=== PATIENT | female | born 1960 | race Two or more races ===

== ENCOUNTER 2020-05-24 08:45 | Day surgery (SDC) | payer MEDICAID ==
[~2020-05-24] VITALS: Ht 149.9 cm; Wt 101.8 kg
[~2020-05-24 08:45] MED LIST: ALBU8.5H4 IH; ASPI-1009 PO; BISM-142 PO; INSU100V36 SQ; INSU100V9 SQ; LORA0.5T PO; LORATADINE PO; METH10OR11 PO; OMEP-84 PO; OXYC-150 PO; PATANOL EACHEYE; ROSU20TA2 PO
[2020-05-24] MEDS ORDERED: MIDAZolam 1 MG/ML 5ML VIAL ONE (09:06)
[2020-05-24] MEDS ORDERED: fentaNYL/PF 50MCG/1 ML 2ML syringe ONE (09:06)
[2020-05-24 09:10] VITALS: BP 143/69
[2020-05-24] MEDS ORDERED: OXYC20TA71 PO (09:36)
[2020-05-24 10:34] VITALS: BP 102/45
[2020-05-24 10:44] VITALS: BP 115/81
[2020-05-24 10:54] VITALS: BP 112/52
== END 2020-05-24 11:08 | disposition home or self-care (01) ==
LOC: GI LAB 08:45
PROVIDERS: ATTEND Internal Medicine Gastroenterology
DX: Z12.11 Encounter for screening for malignant neoplasm of colon (principal); K63.5 Polyp of colon; K64.8 Other hemorrhoids; E11.9 Type 2 diabetes mellitus without complications; F17.210 Nicotine dependence, cigarettes, uncomplicated; Z85.038 Personal history of other malignant neoplasm of large intestine; Z79.4 Long term (current) use of insulin; Z79.82 Long term (current) use of aspirin; Z79.899 Other long term (current) drug therapy; Z80.0 Family history of malignant neoplasm of digestive organs
CPT/HCPCS: 45380; 45385; 99152; 99153; C1773; J2250; J3010; J7040; A4620

== ENCOUNTER 2022-03-15 04:32 | Emergency (ER) | payer MEDICAID ==
[~2022-03-15] VITALS: Ht 149.9 cm; Wt 110.0 kg
[~2022-03-15 04:32] MED LIST changes: -BISM-142 PO; -LORA0.5T PO; -LORATADINE PO; -METH10OR11 PO; -OXYC-150 PO; +OXYC20TA78 PO; -PATANOL EACHEYE; -ROSU20TA2 PO
[2022-03-15] MEDS ORDERED: normal saline 1000ML IV soln IVB ONE (04:45)
[2022-03-15] MEDS ORDERED: ketorolac tromethamine 15mg/ml inj. IV ONE (04:45)
[2022-03-15] MEDS ORDERED: HYDROmorphone 1 mg/ml syringe IV ONE (04:45)
[2022-03-15 05:20] LABS: BASOPHILS # (AUTO) 0.1 X10'3 (0-0.2); BASOPHILS % (AUTO) 0.8 % (0-1); EOSINOPHILS # (AUTO) 0.2 X10'3 (0-0.9); EOSINOPHILS % (AUTO) 3.3 % (0-6); HEMATOCRIT 39.2 % (35.0-45.0); HEMOGLOBIN 12.8 g/dl (12.0-16.0); LYMPHOCYTES # (AUTO) 2.2 X10'3 (1.1-4.8); LYMPHOCYTES % (AUTO) 29.2 % (21-51); MEAN CORPUSCULAR HEMOGLOBIN 28.6 PG (27.0-31.0); MEAN CORPUSCULAR HGB CONC 32.6 g/dL (33.0-36.5); MEAN CORPUSCULAR VOLUME 87.7 FL (78-98); MEAN PLATELET VOLUME 7.2 FL (7.4-10.4); MONOCYTES # (AUTO) 0.6 X10'3 (0-0.9); MONOCYTES % (AUTO) 7.9 % (2-12); NEUTROPHILS # (AUTO) 4.3 X10'3 (1.8-7.7); NEUTROPHILS % (AUTO) 58.8 % (42-75); PLATELET COUNT 242 X10'3 (140-440); RED BLOOD COUNT 4.47 X10'6 (4.20-5.60); RED CELL DISTRIBUTION WIDTH 14.2 % (11.5-14.5); WHITE BLOOD COUNT 7.4 X10'3 (4.5-11.0)
[2022-03-15 05:32] LABS: ALANINE AMINOTRANSFERASE 22 U/L (12-78); ALBUMIN 2.8 G/DL (3.4-5.0); ALBUMIN/GLOBULIN RATIO 0.7 (1.1-1.5); ALKALINE PHOSPHATASE 107 IU/L (46-116); ANION GAP 5 (8-16); ASPARTATE AMINO TRANSFERASE 23 U/L (10-37); BILIRUBIN,TOTAL 0.3 MG/DL (0.1-1.0); BLOOD UREA NITROGEN 13 MG/DL (7-18); BUN/CREATININE RATIO 17.3 (6.6-38.0); CALCIUM 8.3 MG/DL (8.5-10.1); CHLORIDE 107 MMOL/L (99-107); CREATININE 0.75 MG/DL (0.40-0.90); GLUCOSE 122 MG/DL (70-104); LIPASE < 50 U/L (73-393); POTASSIUM 4.1 MMOL/L (3.5-5.1); SODIUM 139 MMOL/L (135-145); TOTAL CARBON DIOXIDE 26.9 MMOL/L (24-32); TOTAL PROTEIN 6.7 G/DL (6.4-8.2); eGFR 79 ML/MIN
[2022-03-15] MEDS ORDERED: iohexol 300mg/ml 100ml inj. ONE (05:45)
[2022-03-15 07:01] LABS: CLARITY,URINE CLEAR (Clear); COLOR,URINE YELLOW (Yellow); GLUCOSE, URINE NEGATIVE (Neg); KETONES,URINE NEGATIVE (Neg); LEUKOCYTE ESTERASE ,URINE NEGATIVE (Neg); NITRITES, URINE NEGATIVE (Neg); OCCULT BLOOD,URINE NEGATIVE (Neg); PH,URINE 5.5 (4.8-8.0); PROTEIN,URINE NEGATIVE (Neg); UROBILINOGEN,URINE 0.2 E.U/dL (0.2-1.0)
[2022-03-15 07:10] LABS: UA COLLECTION TYPE VOIDED
[2022-03-15] MEDS ORDERED: HYDROcodone/acetaminophen 5mg/325mg tablet PO ONE (07:35)
[2022-03-15] MEDS ORDERED: HYDR-3965 PO (07:37)
[2022-03-15 07:49] VITALS: BP 134/66
== END 2022-03-15 08:03 | disposition home or self-care (01) ==
LOC: ER 04:33
DX: M54.50 Low back pain, unspecified (principal); R10.32 Left lower quadrant pain; Z88.5 Allergy status to narcotic agent
CPT/HCPCS: 36415; 74177; 80053; 81003; 83690; 85025; 96361; 96374; 96375; 99285; J1170; J1885; J3490; J7030; Q9967

== ENCOUNTER 2022-08-02 10:06 | Inpatient (IN) | payer MEDICAID ==
[2022-07-31 16:08] LABS: CLARITY,URINE CLOUDY (Clear); COLOR,URINE YELLOW (Yellow); GLUCOSE, URINE NEGATIVE (Neg); KETONES,URINE NEGATIVE (Neg); LEUKOCYTE ESTERASE ,URINE NEGATIVE (Neg); OCCULT BLOOD,URINE NEGATIVE (Neg); PH,URINE 5.5 (4.8-8.0); PROTEIN,URINE 30 mg/dl (Neg); UROBILINOGEN,URINE 0.2 E.U/dL (0.2-1.0)
[2022-07-31 16:11] LABS: BASOPHILS % (AUTO) 0.4 % (0-1); EOSINOPHILS # (AUTO) 0.1 X10'3 (0-0.9); EOSINOPHILS % (AUTO) 0.8 % (0-6); LYMPHOCYTES # (AUTO) 1.7 X10'3 (1.1-4.8); LYMPHOCYTES % (AUTO) 20.5 % (21-51); MEAN CORPUSCULAR HEMOGLOBIN 29.4 PG (27.0-31.0); MEAN CORPUSCULAR HGB CONC 33.5 g/dL (33.0-36.5); MEAN CORPUSCULAR VOLUME 87.8 FL (78-98); MEAN PLATELET VOLUME 7.9 FL (7.4-10.4); MONOCYTES # (AUTO) 0.6 X10'3 (0-0.9); MONOCYTES % (AUTO) 6.9 % (2-12); NEUTROPHILS # (AUTO) 5.9 X10'3 (1.8-7.7); NEUTROPHILS % (AUTO) 71.4 % (42-75); PRE OP HEMATOCRIT 42.6 % (35.0-45.0); PRE OP HEMOGLOBIN 14.3 g/dL (12.0-16.0); PRE OP PLATELET COUNT 224 X10'3 (140-440); RED BLOOD COUNT 4.86 X10'6 (4.20-5.60); RED CELL DISTRIBUTION WIDTH 14.8 % (11.5-14.5)
[2022-07-31 16:13] LABS: UA COLLECTION TYPE CLN CATCH MIDSTREAM
[2022-07-31 16:20] LABS: ALBUMIN 3.7 G/DL (3.4-5.0); ALKALINE PHOSPHATASE 104 IU/L (46-116); BLOOD UREA NITROGEN 6 MG/DL (7-18); BUN/CREATININE RATIO 7.3 (10.0-20.0); CALCIUM 8.6 MG/DL (8.5-10.1); CHLORIDE 102 MMOL/L (99-107); CREATININE 0.82 MG/DL (0.40-0.90); PRE OP ALT 26 U/L (30-65); PRE OP ANION GAP 13 (8-16); PRE OP AST 23 U/L (10-37); PRE OP BILIRUB, TOTAL 0.5 MG/DL (0.0-1.0); PRE OP GLUCOSE 185 MG/DL (70-104); PRE OP POTASSIUM 3.8 MMOL/L (3.4-5.1); PRE OP SODIUM 140 MMOL/L (135-145); TOTAL CARBON DIOXIDE 25.5 MMOL/L (24-32); TOTAL PROTEIN 7.3 G/DL (6.4-8.2); eGFR 71 ML/MIN
[2022-07-31 16:28] LABS: NITRITES, URINE NEGATIVE (Neg)
[2022-07-31 16:29] LABS: BACTERIA,URINE 1+ /HPF (Neg); RBC,URINE NONE SEEN /HPF (0-2); SQUAMOUS EPITHELIAL CELL,UR MANY /LPF (FEW)
[~2022-08-02] VITALS: Ht 149.9 cm; Wt 108.9 kg
[2022-08-02] VITALS (21 sets, daily range): BP systolic 103–236; BP diastolic 52–83
[~2022-08-02 10:06] MED LIST changes: -ALBU8.5H4 IH; +ALBU90AE IH; +ATOR40TA71 PO; +CLOP75TA34 PO; +ERGO500056 PO; +GABA300C PO; +LACT1CAP60 PO; -OMEP-84 PO; -OXYC20TA78 PO; +OXYC20TA89 PO; +PANT40TA54 PO; +TIZA4CAP PO; +cefazolin 2gm/D5W 100mL 100 ML IV ONE; +famotidine 20mg tablet PO ONE; +nitroPRUSSIDE (NIPRIDE) (200MCG/ML) 100ML Drip IV SCH
[2022-08-02] MEDS: ringers solution, lacted 1,000 ML IV SCH ×3 (12:29→17:42)
[2022-08-02] MEDS ORDERED: fentaNYL/PF 50MCG/1 ML 2ML syringe IV PRN (13:20)
--- NOTE | 2022-08-02 13:26 | NUR ---
PT TOOK HER PLAVIX TODAY 0900 PER CARDIOLOGISTS INSTRUCTIONS. ALL DOCTOS AWARE AND OK TO PROCEED.
[2022-08-02] MEDS ORDERED: midazolam 1 mg/ML 2ml injection ONE (13:28)
[2022-08-02] MEDS ORDERED: rocuronium 10mg/ml inj IV ONE (13:28)
[2022-08-02] MEDS ORDERED: fentaNYL /PF 50mcg/ml 5ml ampule ONE (13:28)
[2022-08-02] MEDS ORDERED: propofol inj 20 ML IV ONE (13:28)
[2022-08-02] MEDS ORDERED: heparin 10,000 units/1 ML INJ IR ONE (13:31)
[2022-08-02] MEDS ORDERED: ondansetron/PF 4mg/2ml inj ONE (13:31)
[2022-08-02] MEDS ORDERED: sevoflurane 250ml liquid IH ONE (13:31)
[2022-08-02] MEDS ORDERED: dexamethasone sod phosphate 4mg/ml inj. ONE (14:25)
[2022-08-02] MEDS ORDERED: heparin 1,000unit/ml 10ml vial 10 ML ONE (14:25)
[2022-08-02] MEDS ORDERED: naloxone 0.4 mg/ml inj IV PRN (15:20)
[2022-08-02] MEDS ORDERED: fentaNYL/PF 50MCG/1 ML 2ML syringe ONE (15:20)
[2022-08-02] MEDS: FENTANYL-0.9 % NACL/PF 100 ML IV PRN ×2 (15:53→20:04)
[2022-08-02] MEDS: propofol 1000mg/100ml bottle 100 ML IV SCH ×3 (15:54→20:20)
--- NOTE | 2022-08-02 15:55 | NUR ---
Received from OR via icu bed , accompanied by AnesthesiNECK DRESSING IS CDI AND EDI DRAIN PRESENT.ologist carl and report given by Anesthesiolgist. PATIENT WITH 20G PIV IN RIGHT UR WELL ART LINE IN RIGHT UE. TUBED AT 21 AT THE LIPS. VENTILATED UPON ARRIVAL VIA RT. SCDS DONNED. FLOEY CATHETER PLACED BY OR KIRSTIN IN ROOM CLEAR YELLOW URINE PRESENT. RESTRAINTS DONNED FOR PATIENT AIRWAY SAFETY. Addendum: 08/02/22 at 1608 by Stevie Pitts RN, RN Amended: Links added.
--- NOTE | 2022-08-02 16:30 | NUR ---
Patient in room ICU 2045. I have received report from Stevie BALDERRAMA and had the opportunity to ask questions and assume patient care.
[2022-08-02] MEDS: phenylephrine inj 50 MG in normal saline 250ml IV solN IV SCH ×2 (16:33→20:34)
[2022-08-02] MEDS: nitroPRUSSIDE sod inj. 50 MG in dextrose 5%-water 248 ML IV SCH (16:39)
--- NOTE | 2022-08-02 18:28 | NUR ---
Problems reprioritized. Patient report given, questions answered & plan of care reviewed with Stevie BALDERRAMA.
[2022-08-02] MEDS ORDERED: insulin regular, human U-100 3ml vial - multi-dose SQ SCH (20:55)
[2022-08-02] MEDS ORDERED: dextrose 50%-water 50ml dispensing syringe IV PRN ×2 (20:55)
[2022-08-02] MEDS: insulin Lispro (HumaLOG) vial - multi-dose SQ SCH (21:44)
[2022-08-02] MEDS: insulin glargine (Lantus) pen - multi-dose SQ SCH (21:45)
[2022-08-02] MEDS ORDERED: albuterol 2.5 MG/3 ML nebule NEB PRN (21:50)
[2022-08-03] VITALS (29 sets, daily range): BP systolic 93–172; BP diastolic 35–74
[2022-08-03] MEDS: FENTANYL-0.9 % NACL/PF 100 ML IV PRN ×2 (00:48→05:41)
[2022-08-03] MEDS: propofol 1000mg/100ml bottle 100 ML IV SCH ×2 (01:19→06:15)
[2022-08-03 03:18] LABS: ABG BASE EXCESS 1.4 mmol/L (-2.0-2.0); ABG HCO3 23.8 mmol/L (22.0-26.0); ABG OXYGEN SATURATION 98.9 % (94-97); ABG PCO2 (T) 30.7 mmHg (32.0-45.0); ABG PO2 (T) 154.3 mmHg (75.0-100.0); FCOHb 0.3 % (0.0-3.9); FMetHb 0.4 % (0.0-1.5); FO2Hb 98.2 % (94-97); PATIENT TEMPERATURE 36.7; PEEP 5 cm H2O; RESPIRATORY RATE 12 b/min; TIDAL VOLUME 500 mL; TOTAL HEMOGLOBIN 13.4 G/dl (12.0-16.0)
[2022-08-03] MEDS: ringers solution, lacted 1,000 ML IV SCH ×3 (03:52→22:28)
[2022-08-03] MEDS: insulin Lispro (HumaLOG) vial - multi-dose SQ SCH ×3 (04:10→13:27)
[2022-08-03 04:44] LABS: BASOPHILS % (AUTO) 0.2 % (0-1); EOSINOPHILS % (AUTO) 0 % (0-6); HEMATOCRIT 36.8 % (35.0-45.0); HEMOGLOBIN 12.5 g/dl (12.0-16.0); MEAN CORPUSCULAR HEMOGLOBIN 29.6 PG (27.0-31.0); MEAN CORPUSCULAR HGB CONC 34.1 g/dL (33.0-36.5); MEAN CORPUSCULAR VOLUME 86.9 FL (78-98); MEAN PLATELET VOLUME 7.9 FL (7.4-10.4); MONOCYTES # (AUTO) 0.4 X10'3 (0-0.9); MONOCYTES % (AUTO) 4.5 % (2-12); NEUTROPHILS % (AUTO) 84.3 % (42-75); PLATELET COUNT 194 X10'3 (140-440); RED BLOOD COUNT 4.23 X10'6 (4.20-5.60); RED CELL DISTRIBUTION WIDTH 14.4 % (11.5-14.5); WHITE BLOOD COUNT 9.5 X10'3 (4.5-11.0)
[2022-08-03 04:53] LABS: ALBUMIN 3.1 G/DL (3.4-5.0); ANION GAP 12 (8-16); BLOOD UREA NITROGEN 8 MG/DL (7-18); BUN/CREATININE RATIO 10.8 (10.0-20.0); CALCIUM 8.5 MG/DL (8.5-10.1); CHLORIDE 102 MMOL/L (99-107); CREATININE 0.74 MG/DL (0.40-0.90); GLUCOSE 219 MG/DL (70-104); POTASSIUM 4.2 MMOL/L (3.5-5.1); SODIUM 139 MMOL/L (135-145); TRIGLYCERIDES 54 MG/DL (20-135); eGFR 80 ML/MIN
[2022-08-03] MEDS: oxyCODONE SR 10mg (sust. release) tab PO SCH ×4 (07:01→23:09)
[2022-08-03] MEDS: pantoprazole 40mg Tablet.DR PO SCH (07:52)
[2022-08-03] MEDS: tizanidine 4mg tablet PO SCH ×4 (07:52→23:09)
[2022-08-03] MEDS: gabapentin 300mg capsule PO SCH ×5 (07:52→23:13)
[2022-08-03] MEDS: clopidogrel 75mg tablet PO SCH (07:52)
[2022-08-03] MEDS: lactobacillus rhamnosus 10,000 MMU CELLS/CAPSULE PO SCH ×2 (07:53→20:19)
[2022-08-03] MEDS: atorvastatin 20mg tablet PO SCH (07:53)
[2022-08-03] MEDS: aspirin 81mg, enteric-coated 1 TAB TABLET.DR PO SCH (07:53)
[2022-08-03] MEDS ORDERED: insulin Lispro (HumaLOG) vial - multi-dose SQ SCH (08:00)
[2022-08-03] MEDS ORDERED: morphine 2 MG/ML inj. syringe IV PRN (10:50)
[2022-08-03] MEDS: nitroPRUSSIDE sod inj. 50 MG in dextrose 5%-water 248 ML IV SCH (11:38)
[2022-08-03] MEDS ORDERED: metoprolol tartrate 50mg tablet PO SCH (12:50)
--- NOTE | 2022-08-03 12:50 | NUR ---
Orders for 50mg Lopressor q6h per Dr. Mendoza in order to d/c Nipride. SBP 160-170s. Dr. Mendoza aware of HR in the 60s while awake and 40s while at rest. Parameters to hold if SBP <40 and MAP >70.
--- NOTE | 2022-08-03 18:22 | NUR ---
Problems reprioritized. Patient report given, questions answered & plan of care reviewed with Aysha BALDERRAMA.
--- NOTE | 2022-08-03 18:24 | NUR ---
Patient's SBP 110s at rest and HR 40s; okay to decrease Lopressor to 25mg/hour q6h.
[2022-08-03] MEDS: metoprolol tartrate 25mg tablet PO SCH (20:00)
[2022-08-03] MEDS: insulin glargine (Lantus) pen - multi-dose SQ SCH (20:22)
[2022-08-03] MEDS ORDERED: INSULIN GLARGINE HUM REC ANLOG 70 UNIT SQ SCH (21:00)
[2022-08-04] VITALS (17 sets, daily range): BP systolic 102–159; BP diastolic 42–83
[2022-08-04] MEDS: metoprolol tartrate 25mg tablet PO SCH ×2 (02:00→08:00)
[2022-08-04 03:07] LABS: BASOPHILS # (AUTO) 0.1 X10'3 (0-0.2); BASOPHILS % (AUTO) 0.6 % (0-1); EOSINOPHILS % (AUTO) 0.4 % (0-6); HEMATOCRIT 33.9 % (35.0-45.0); HEMOGLOBIN 11.5 g/dl (12.0-16.0); LYMPHOCYTES # (AUTO) 2.3 X10'3 (1.1-4.8); LYMPHOCYTES % (AUTO) 24.4 % (21-51); MEAN CORPUSCULAR HEMOGLOBIN 29.7 PG (27.0-31.0); MEAN CORPUSCULAR HGB CONC 33.8 g/dL (33.0-36.5); MEAN CORPUSCULAR VOLUME 87.7 FL (78-98); MEAN PLATELET VOLUME 7.8 FL (7.4-10.4); MONOCYTES # (AUTO) 0.7 X10'3 (0-0.9); MONOCYTES % (AUTO) 7.8 % (2-12); NEUTROPHILS # (AUTO) 6.4 X10'3 (1.8-7.7); NEUTROPHILS % (AUTO) 66.8 % (42-75); PLATELET COUNT 185 X10'3 (140-440); RED BLOOD COUNT 3.87 X10'6 (4.20-5.60); RED CELL DISTRIBUTION WIDTH 14.5 % (11.5-14.5); WHITE BLOOD COUNT 9.6 X10'3 (4.5-11.0)
[2022-08-04 03:12] LABS: ALBUMIN 2.8 G/DL (3.4-5.0); ANION GAP 8 (8-16); BLOOD UREA NITROGEN 6 MG/DL (7-18); BUN/CREATININE RATIO 9.5 (10.0-20.0); CALCIUM 8.5 MG/DL (8.5-10.1); CHLORIDE 107 MMOL/L (99-107); CREATININE 0.63 MG/DL (0.40-0.90); GLUCOSE 150 MG/DL (70-104); POTASSIUM 3.8 MMOL/L (3.5-5.1); SODIUM 143 MMOL/L (135-145); TOTAL CARBON DIOXIDE 28.1 MMOL/L (24-32); eGFR > 90 ML/MIN
[2022-08-04] MEDS: ringers solution, lacted 1,000 ML IV SCH (07:20)
[2022-08-04] MEDS: aspirin 81mg, enteric-coated 1 TAB TABLET.DR PO SCH (07:27)
[2022-08-04] MEDS: clopidogrel 75mg tablet PO SCH (07:27)
[2022-08-04] MEDS: tizanidine 4mg tablet PO SCH ×2 (07:27→15:31)
[2022-08-04] MEDS: pantoprazole 40mg Tablet.DR PO SCH (07:27)
[2022-08-04] MEDS: atorvastatin 20mg tablet PO SCH (07:27)
[2022-08-04] MEDS: oxyCODONE SR 10mg (sust. release) tab PO SCH ×2 (07:28→15:32)
[2022-08-04] MEDS: lactobacillus rhamnosus 10,000 MMU CELLS/CAPSULE PO SCH ×2 (08:00→20:00)
[2022-08-04] MEDS: gabapentin 300mg capsule PO SCH ×2 (08:00→15:40)
[2022-08-04] MEDS: insulin Lispro (HumaLOG) vial - multi-dose SQ SCH ×2 (09:34→12:50)
--- NOTE | 2022-08-04 14:47 | NUR ---
D/C EDI drain per Dr. Tilley at bedside. Likely home in AM
--- NOTE | 2022-08-04 14:50 | NUR ---
Problems reprioritized. Patient report given, questions answered & plan of care reviewed with Roel BALDERRAMA.
--- NOTE | 2022-08-04 15:05 | NUR ---
Patient to with all belongings including cane, personal pillows, and clothing. Report given to Roel with all questions answered.
--- NOTE | 2022-08-04 15:43 | NUR ---
Received report for pt from Kade in ICU. Pt has been brought to floor and I have assumed care of pt. Pt seen and settled in room. Pt is stable and needs addressed.
--- NOTE | 2022-08-04 18:38 | NUR ---
Patient in room PCU 3023. I have received report from ELBA BALDERRAMA and had the opportunity to ask questions and assume patient care.
--- NOTE | 2022-08-04 18:52 | NUR ---
Problems reprioritized. Patient report given, questions answered & plan of care reviewed with Prudence RN.
[2022-08-04] MEDS ORDERED: oxyCODONE SR 10mg (sust. release) tab PO ONE (19:30)
[2022-08-04] MEDS: insulin glargine (Lantus) pen - multi-dose SQ SCH (21:34)
[2022-08-05] MEDS: tizanidine 4mg tablet PO SCH ×2 (00:33→07:36)
[2022-08-05] MEDS: oxyCODONE SR 10mg (sust. release) tab PO SCH ×2 (00:33→07:34)
[2022-08-05 02:49] VITALS: BP 120/50
[2022-08-05 06:00] VITALS: BP 131/57
--- NOTE | 2022-08-05 06:15 | NUR ---
Patient in room PCU 3023. I have received report from Sofia BALDERRAMA and had the opportunity to ask questions and assume patient care. Pt sleeping, no distress, Call light in reach. Addendum: 08/05/22 at 0633 by Karuna Fox RN Amended: Links added.
--- NOTE | 2022-08-05 06:16 | NUR ---
Problems reprioritized. Patient report given, questions answered & plan of care reviewed with EDITH BALDERRAMA.
[2022-08-05] MEDS: pantoprazole 40mg Tablet.DR PO SCH (07:36)
[2022-08-05] MEDS: aspirin 81mg, enteric-coated 1 TAB TABLET.DR PO SCH (07:36)
[2022-08-05] MEDS: clopidogrel 75mg tablet PO SCH (07:37)
[2022-08-05] MEDS: atorvastatin 20mg tablet PO SCH (07:37)
[2022-08-05] MEDS: lactobacillus rhamnosus 10,000 MMU CELLS/CAPSULE PO SCH (08:00)
[2022-08-05] MEDS: gabapentin 300mg capsule PO SCH ×2 (08:00)
--- NOTE | 2022-08-05 09:07 | NUR ---
DRSG to left neck area saturated. DRSG change to left neck area completed. pt tolerated well.
[2022-08-05] MEDS: insulin Lispro (HumaLOG) vial - multi-dose SQ SCH ×2 (09:26→12:54)
[2022-08-05 11:23] VITALS: BP 140/58
[2022-08-05 11:27] LABS: BASOPHILS % (AUTO) 0.5 % (0-1); EOSINOPHILS # (AUTO) 0.2 X10'3 (0-0.9); HEMATOCRIT 35.6 % (35.0-45.0); HEMOGLOBIN 12.1 g/dl (12.0-16.0); LYMPHOCYTES # (AUTO) 1.8 X10'3 (1.1-4.8); LYMPHOCYTES % (AUTO) 21.2 % (21-51); MEAN CORPUSCULAR HEMOGLOBIN 29.8 PG (27.0-31.0); MEAN CORPUSCULAR HGB CONC 34.1 g/dL (33.0-36.5); MEAN CORPUSCULAR VOLUME 87.6 FL (78-98); MEAN PLATELET VOLUME 7.7 FL (7.4-10.4); MONOCYTES # (AUTO) 0.7 X10'3 (0-0.9); MONOCYTES % (AUTO) 7.6 % (2-12); NEUTROPHILS % (AUTO) 68.7 % (42-75); PLATELET COUNT 190 X10'3 (140-440); RED BLOOD COUNT 4.07 X10'6 (4.20-5.60); RED CELL DISTRIBUTION WIDTH 14.2 % (11.5-14.5); WHITE BLOOD COUNT 8.7 X10'3 (4.5-11.0)
[2022-08-05 11:40] LABS: ALBUMIN 2.8 G/DL (3.4-5.0); ANION GAP 11 (8-16); BLOOD UREA NITROGEN 5 MG/DL (7-18); BUN/CREATININE RATIO 7.2 (10.0-20.0); CALCIUM 8.4 MG/DL (8.5-10.1); CHLORIDE 101 MMOL/L (99-107); CREATININE 0.69 MG/DL (0.40-0.90); GLUCOSE 173 MG/DL (70-104); POTASSIUM 3.6 MMOL/L (3.5-5.1); SODIUM 140 MMOL/L (135-145); TOTAL CARBON DIOXIDE 28.5 MMOL/L (24-32); eGFR 87 ML/MIN
--- NOTE | 2022-08-05 14:45 | NUR ---
all written and verbal orders for D/c given, All questions answered.Pt stated she had all belongings including cane and phone. pt left hospital via W/C with family. Addendum: 08/05/22 at 1456 by Karuna Fox RN Amended: Links added.
[2022-08-06] MEDS ORDERED: ergocalciferol (vit D2) capsule 50,000 UNITS (1,250mcg) CAPSULE PO SCH (08:00)
== END 2022-08-05 14:51 | disposition home health service (06) | DRG 24 ==
LOC: PAS IN 10:06 → ICU 2S 15:46 → PCU 3S 08-04 16:01
PROVIDERS: ADMIT Surgery; ATTEND Surgery
PROC: 03UN0KZ Supplement Left External Carotid Artery with Nonautologous Tissue Substitute, Open Approach (ICD-10-PCS; 2022-08-02)
PROC: 03CN0ZZ Extirpation of Matter from Left External Carotid Artery, Open Approach (ICD-10-PCS; principal; 2022-08-02 13:31)
DX: I65.23 Occlusion and stenosis of bilateral carotid arteries (principal); J96.00 Acute respiratory failure, unspecified whether with hypoxia or hypercapnia; E11.9 Type 2 diabetes mellitus without complications; E66.01 Morbid (severe) obesity due to excess calories; E78.5 Hyperlipidemia, unspecified; F17.210 Nicotine dependence, cigarettes, uncomplicated; G47.33 Obstructive sleep apnea (adult) (pediatric); I10 Essential (primary) hypertension; K21.9 Gastro-esophageal reflux disease without esophagitis; Z79.02 Long term (current) use of antithrombotics/antiplatelets; Z79.4 Long term (current) use of insulin; Z79.82 Long term (current) use of aspirin; Z80.0 Family history of malignant neoplasm of digestive organs; Z82.49 Family history of ischemic heart disease and other diseases of the circulatory system; Z85.038 Personal history of other malignant neoplasm of large intestine; Z68.42 Body mass index [BMI] 45.0-49.9, adult; Z88.5 Allergy status to narcotic agent; Z88.8 Allergy status to other drugs, medicaments and biological substances; Z79.899 Other long term (current) drug therapy; Z71.3 Dietary counseling and surveillance; L76.32 Postprocedural hematoma of skin and subcutaneous tissue following other procedure; Y83.8 Other surgical procedures as the cause of abnormal reaction of the patient, or of later complication, without mention of misadventure at the time of the procedure; Y92.230 Patient room in hospital as the place of occurrence of the external cause
CPT/HCPCS: 36415; 36600; 71045; 80048; 80053; 81001; 82803; 82948; 83036; 84478; 85018; 85025; 86885; 86900; 86901; 87081; 92508; 92616; 94002; 94003; 94760; 95813; 95816; 97161; 97530; 97535; A4615; A4618; A4628; A6213; A6258; A6449; A7000; C1768; G0378; J0690; J1100; J1644; J1815; J2250; J2370; J2405; J2704; J3010; J3490; J7040; J7050; J7060; J7120

== ENCOUNTER 2022-10-04 09:21 | Inpatient (IN) | payer MEDICAID ==
[2022-10-02 16:29] LABS: BILIRUBIN,URINE NEGATIVE (Neg); CLARITY,URINE SLIGHTLY CLOUDY (Clear); COLOR,URINE YELLOW (Yellow); GLUCOSE, URINE NEGATIVE (Neg); KETONES,URINE NEGATIVE (Neg); LEUKOCYTE ESTERASE ,URINE TRACE (Neg); NITRITES, URINE NEGATIVE (Neg); OCCULT BLOOD,URINE NEGATIVE (Neg); PROTEIN,URINE TRACE mg/dl (Neg); UROBILINOGEN,URINE 0.2 E.U/dL (0.2-1.0)
[2022-10-02 16:39] LABS: UA COLLECTION TYPE CLN CATCH MIDSTREAM
[2022-10-02 16:48] LABS: BACTERIA,URINE 1+ /HPF (Neg); MUCUS STRANDS FEW /LPF (Neg); RBC,URINE NONE SEEN /HPF (0-2); SQUAMOUS EPITHELIAL CELL,UR MODERATE /LPF (FEW); WBC,URINE 20-30 /HPF (0-4)
[2022-10-02 16:57] LABS: ALBUMIN 3.3 G/DL (3.4-5.0); ALBUMIN/GLOBULIN RATIO 0.9 (1.1-1.5); ALKALINE PHOSPHATASE 99 IU/L (46-116); BLOOD UREA NITROGEN 11 MG/DL (7-18); BUN/CREATININE RATIO 15.1 (10.0-20.0); CALCIUM 9.3 MG/DL (8.5-10.1); CHLORIDE 104 MMOL/L (99-107); CREATININE 0.73 MG/DL (0.40-0.90); PRE OP ALT 24 U/L (30-65); PRE OP ANION GAP 6 (8-16); PRE OP AST 18 U/L (10-37); PRE OP BILIRUB, TOTAL 0.3 MG/DL (0.0-1.0); PRE OP GLUCOSE 154 MG/DL (70-104); PRE OP SODIUM 139 MMOL/L (135-145); TOTAL CARBON DIOXIDE 29.3 MMOL/L (24-32); TOTAL PROTEIN 7.1 G/DL (6.4-8.2); eGFR 81 ML/MIN
[2022-10-04] VITALS (42 sets, daily range): BP systolic 126–189; BP diastolic 48–112; PULSE 12–71; RESP 0–24; TEMP 97.1; O2SAT 88–100
[~2022-10-04] VITALS: Ht 149.9 cm; Wt 109.0 kg
[2022-10-04] MEDS: phenylephrine inj 50 MG in normal saline 250ml IV solN IV SCH ×2 (05:30→20:34)
[2022-10-04] MEDS: nitroPRUSSIDE (NIPRIDE) (200MCG/ML) 100ML Drip IV SCH ×2 (05:30→17:33)
[~2022-10-04 09:21] MED LIST changes: +ALBU2.5V10 NEB; +FLO110IN IH; +INSU100I31 SQ; -INSU100V36 SQ; -INSU100V9 SQ; +NOVLG SQ; +OXYC20TA40 PO; -OXYC20TA89 PO; +albuterol 2.5 MG/3 ML nebule NEB ONE; -nitroPRUSSIDE (NIPRIDE) (200MCG/ML) 100ML Drip IV SCH; +ringers solution, lacted 1,000 ML IV SCH
[2022-10-04] MEDS ORDERED: LIDOcaine 1% (10mg/ml) 2ml vial ONE (11:17)
[2022-10-04] MEDS ORDERED: LIDOcaine 1% 30ml preserv. free vial ONE (11:46)
[2022-10-04] MEDS ORDERED: protamine sulfate 10mg/ml inj. ONE (11:47)
[2022-10-04] MEDS ORDERED: heparin 10,000 units/1 ML INJ ONE (11:47)
[2022-10-04] MEDS ORDERED: fentaNYL/PF 50MCG/1 ML 2ML syringe ONE (12:02)
[2022-10-04] MEDS ORDERED: rocuronium 10mg/ml inj IV ONE (12:02)
[2022-10-04] MEDS ORDERED: midazolam 1 mg/ML 2ml injection ONE (12:02)
[2022-10-04] MEDS ORDERED: propofol inj 20 ML IV ONE (12:02)
[2022-10-04] MEDS ORDERED: sevoflurane 250ml liquid IH ONE (12:03)
[2022-10-04] MEDS ORDERED: ePHEDrine 50MG/ML INJ. ONE (12:03)
[2022-10-04] MEDS ORDERED: ondansetron/PF 4mg/2ml inj ONE (12:03)
[2022-10-04] MEDS ORDERED: dexamethasone sod phosphate 10mg/ml inj ONE (12:03)
[2022-10-04] MEDS ORDERED: heparin 1,000unit/ml 10ml vial 10 ML ONE (12:55)
[2022-10-04] MEDS ORDERED: HYDROcodone/acetaminophen 5mg/325mg tablet PO PRN (13:55)
[2022-10-04] MEDS ORDERED: ondansetron/PF 4mg/2ml inj IV PRN ×2 (13:55→14:25)
--- NOTE | 2022-10-04 14:16 | NUR ---
Received from OR via HOSPITAL BED TO RR 6 , accompanied by Anesthesiologist ANGEL and report given by Anesthesiolgist. PT PRESENTS ON 6L VIA MASK WITH SPO2 AT 98%. EDI DRAIN TO RIGHT NECK UNDER DRESSING WHICH IS CDI. WATCHING PRESSURES TO KEEP SBP BETWEEN 150-170 PER MD ORTIZ. LR RUNNING AT 100ML/HR THRU 20 G PIV IN LEFT HAND. ART LINE IN RIGHT WRIST. NO S/S OF DISTRESS, PAIN, OR NAUSEA AT THIS TIME. WILL CONTINUE TO ASSESS.
[2022-10-04] MEDS ORDERED: morphine 2 MG/ML inj. syringe IV PRN (14:25)
[2022-10-04] MEDS ORDERED: morphine 4 MG/ML inj SYRINge IV PRN (14:25)
[2022-10-04] MEDS ORDERED: meperidine/PF 25mg/ml syringe IV PRN ×2 (14:25)
[2022-10-04] MEDS ORDERED: proCHLORperazine 10 MG/2 ml inj IV PRN (14:25)
[2022-10-04] MEDS ORDERED: ringers solution, lacted 1,000 ML IV SCH (14:25)
[2022-10-04] MEDS: meperidine/PF 25mg/ml syringe IV PRN ×2 (14:29→18:57)
[2022-10-04] MEDS ORDERED: HYDROmorphone/PF 0.2 MG/ML SYRINGE IV PRN (14:35)
[2022-10-04] MEDS: HYDROmorphone/PF 0.2 MG/ML SYRINGE IV PRN ×4 (14:38→18:29)
[2022-10-04] MEDS ORDERED: acetaminophen 1,000mg/100ml IV 100 ML IV ONE (15:40)
--- NOTE | 2022-10-04 16:20 | NUR ---
MEDIUM BM CLEANED UP AND PATIENT REPOSITIONED FOR COMFORT.
[2022-10-04] MEDS ORDERED: non-formulary drug (Albuterol Sulfate (Proair Respiclick) 2 PUFFS) IH PRN (19:45)
[2022-10-04] MEDS ORDERED: Insulin ASPART (NovoLOG) pen SQ PRN (19:45)
[2022-10-04] MEDS ORDERED: albuterol 2.5 MG/3 ML nebule NEB PRN (19:45)
[2022-10-04] MEDS: budesonide 0.5mg/2ml UD nebule IH SCH (20:00)
--- NOTE | 2022-10-04 20:00 | NUR ---
Patient in room CICU 2011. I have received report from Ju BALDERRAMA and had the opportunity to ask questions and assume patient care.
[2022-10-04] MEDS ORDERED: HYDROmorphone inj. 0.5 MG/0.5 ML DISP.SYRIN IV PRN (20:10)
--- NOTE | 2022-10-04 20:11 | NUR ---
REC'D CALL FROM LILLY CAZARES TO D/C LETICIA AND ADD DILAUDID 0.5MG IV Q4H PRN MOD PAIN AND 1MG IV Q4H PRN SEVERE PAIN.
--- NOTE | 2022-10-04 20:26 | NUR ---
PATIENT STABLE FOR TRANSFER PER MD ORDER. GAVE REPORT TO TACOS RANGEL. ALL QUESTIONS, COMMENTS AND CONCERNS ANSWERED AT THIS TIME. PT STATES PAIN RELIEF IS MUCH BETTER. RIGHT NECK DRESSING DRAINAGE OUTLINED. NO S/S OF HEMATOMA NOTED. ALL GTTS ARE OFF AND VS REMAIN STABLE. PATIENT HOOKED UP IN ROOM 2012 AND PRIMARY NURSE IS AWARE. CALL LIGHT WITHIN REACH, BLL.
[2022-10-04] MEDS ORDERED: insulin Lispro (HumaLOG) vial - multi-dose SQ PRN (20:29)
[2022-10-04] MEDS ORDERED: atorvastatin 20mg tablet PO SCH (21:00)
[2022-10-04] MEDS: HYDROmorphone 1 mg/ml syringe IV PRN (21:39)
[2022-10-04] MEDS: gabapentin 300mg capsule PO SCH (23:49)
[2022-10-04] MEDS: oxyCODONE IR 5mg (immed. release) tablet PO PRN (23:49)
[2022-10-05] VITALS (16 sets, daily range): BP systolic 107–160; BP diastolic 47–78; PULSE 50–69; RESP 12–16; O2SAT 95–96
[2022-10-05] MEDS ORDERED: tizanidine 4mg tablet PO PRN
[2022-10-05 03:11] LABS: BASOPHILS % (AUTO) 0.1 % (0-1); EOSINOPHILS % (AUTO) 0 % (0-6); HEMATOCRIT 36.6 % (35.0-45.0); HEMOGLOBIN 12.4 g/dl (12.0-16.0); LYMPHOCYTES # (AUTO) 1.2 X10'3 (1.1-4.8); LYMPHOCYTES % (AUTO) 10.1 % (21-51); MEAN CORPUSCULAR HEMOGLOBIN 29.6 PG (27.0-31.0); MEAN CORPUSCULAR HGB CONC 33.8 g/dL (33.0-36.5); MEAN CORPUSCULAR VOLUME 87.5 FL (78-98); MEAN PLATELET VOLUME 7.8 FL (7.4-10.4); MONOCYTES # (AUTO) 0.5 X10'3 (0-0.9); MONOCYTES % (AUTO) 4.3 % (2-12); NEUTROPHILS # (AUTO) 10.3 X10'3 (1.8-7.7); NEUTROPHILS % (AUTO) 85.5 % (42-75); PLATELET COUNT 254 X10'3 (140-440); RED BLOOD COUNT 4.18 X10'6 (4.20-5.60); RED CELL DISTRIBUTION WIDTH 14.1 % (11.5-14.5)
[2022-10-05 03:19] LABS: ANION GAP 6 (8-16); BLOOD UREA NITROGEN 12 MG/DL (7-18); BUN/CREATININE RATIO 18.8 (10.0-20.0); CALCIUM 8.9 MG/DL (8.5-10.1); CHLORIDE 103 MMOL/L (99-107); CREATININE 0.64 MG/DL (0.40-0.90); GLUCOSE 194 MG/DL (70-104); POTASSIUM 4.4 MMOL/L (3.5-5.1); SODIUM 137 MMOL/L (135-145); TOTAL CARBON DIOXIDE 28.2 MMOL/L (24-32); eCRCL 64 ML/MIN; eGFR > 90 ML/MIN
[2022-10-05 03:51] LABS: HEMOGLOBIN A1C 6.3 % (4.5-6.2)
[2022-10-05] MEDS: nitroPRUSSIDE (NIPRIDE) (200MCG/ML) 100ML Drip IV SCH (05:36)
--- NOTE | 2022-10-05 06:14 | NUR ---
Problems reprioritized. Patient report given, questions answered & plan of care reviewed with Andreas BALDERRAMA.
[2022-10-05] MEDS: budesonide 0.5mg/2ml UD nebule IH SCH (07:43)
[2022-10-05] MEDS ORDERED: pantoprazole 40mg Tablet.DR PO SCH (08:00)
[2022-10-05] MEDS ORDERED: clopidogrel 75mg tablet PO SCH (08:00)
[2022-10-05] MEDS ORDERED: lactobacillus rhamnosus 10,000 MMU CELLS/CAPSULE PO SCH (08:00)
[2022-10-05] MEDS ORDERED: aspirin 81mg, enteric-coated 1 TAB TABLET.DR PO SCH (08:00)
[2022-10-05] MEDS: gabapentin 300mg capsule PO SCH (08:49)
[2022-10-05] MEDS: oxyCODONE IR 5mg (immed. release) tablet PO PRN (08:59)
[2022-10-05] MEDS: HYDROmorphone 1 mg/ml syringe IV PRN (10:15)
[2022-10-05] MEDS: insulin Lispro (HumaLOG) vial - multi-dose SQ PRN ×2 (10:31→14:22)
[2022-10-05] MEDS: phenylephrine inj 50 MG in normal saline 250ml IV solN IV SCH (11:38)
--- NOTE | 2022-10-05 13:30 | NUR ---
Right wrist art lne, koenig cath, and right neck EDI drain discontinued. per Dr Castellon. Pt up too chair indepently for lunch, uses cane.
--- NOTE | 2022-10-05 14:30 | NUR ---
Pt discharged home.
[2022-10-05] MEDS ORDERED: insulin glargine (Lantus) pen - multi-dose SQ SCH (16:00)
[2022-10-07] MEDS ORDERED: ergocalciferol (vit D2) capsule 50,000 UNITS (1,250mcg) CAPSULE PO SCH (08:00)
== END 2022-10-05 14:55 | disposition home or self-care (01) | DRG 24 ==
LOC: PAS IN 09:21 → CICU 2S 20:10
PROVIDERS: ADMIT Surgery; ATTEND Surgery
PROC: 03CK0ZZ Extirpation of Matter from Right Internal Carotid Artery, Open Approach (ICD-10-PCS; 2022-10-04)
PROC: 03CM0ZZ Extirpation of Matter from Right External Carotid Artery, Open Approach (ICD-10-PCS; 2022-10-04)
PROC: 03UH0KZ Supplement Right Common Carotid Artery with Nonautologous Tissue Substitute, Open Approach (ICD-10-PCS; 2022-10-04)
PROC: 03UK0KZ Supplement Right Internal Carotid Artery with Nonautologous Tissue Substitute, Open Approach (ICD-10-PCS; 2022-10-04)
PROC: 03UM0KZ Supplement Right External Carotid Artery with Nonautologous Tissue Substitute, Open Approach (ICD-10-PCS; 2022-10-04)
PROC: 4A00X4Z Measurement of Central Nervous Electrical Activity, External Approach (ICD-10-PCS; 2022-10-04)
PROC: 03CH0ZZ Extirpation of Matter from Right Common Carotid Artery, Open Approach (ICD-10-PCS; principal; 2022-10-04 12:03)
DX: I65.23 Occlusion and stenosis of bilateral carotid arteries (principal); E11.51 Type 2 diabetes mellitus with diabetic peripheral angiopathy without gangrene; E66.9 Obesity, unspecified; G47.30 Sleep apnea, unspecified; E78.5 Hyperlipidemia, unspecified; Z80.0 Family history of malignant neoplasm of digestive organs; Z85.038 Personal history of other malignant neoplasm of large intestine; Z87.891 Personal history of nicotine dependence; Z88.5 Allergy status to narcotic agent; Z68.42 Body mass index [BMI] 45.0-49.9, adult; Z79.899 Other long term (current) drug therapy
CPT/HCPCS: 36415; 80048; 80053; 81001; 82948; 83036; 85025; 86885; 86900; 86901; 87081; 87088; 94640; 94760; 95813; 95816; A4615; A4618; A6258; A6449; A7000; G0378; J0131; J0690; J1100; J1170; J1644; J1815; J2175; J2250; J2370; J2405; J2704; J2720; J3010; J3490; J7040; J7050; J7120